=== PATIENT | female | born 1990 | race Caucasian/White ===

== ENCOUNTER 2023-01-14 11:34 | Emergency (ER) | payer OTHER ==
[2023-01-14 11:43] VITALS: BMI 27.9
[2023-01-14] MEDS ORDERED: ACETAMINOPHEN 1000 MG/100 ML BAG IVPB ONE (12:38)
[2023-01-14] MEDS ORDERED: SODIUM CHLORIDE 0.9% 500 ML INFUS.BAG IV ONE (12:38)
[2023-01-14] MEDS ORDERED: ACETAMINOPHEN INJECTION 100 ML IVPB ONE (13:29)
[2023-01-14 14:03] LABS: BASO % 0.3 % (0-2.0); EOS % 0.3 % (0-4.5); HEMATOCRIT 41.5 % (32.4-45.2); HEMOGLOBIN 13.6 GM/dL (10.7-15.3); LYMPH % 14.2 % (8-40); MCH 27.3 pg (25.7-33.7); MCHC 32.8 g/dl (32.0-36.0); MEAN CELL VOLUME 83.1 fl (80-96); MEAN PLT VOLUME 8.1 fl (7.5-11.1); MONO % 7.1 % (3.8-10.2); NEUT % 78.1 % (42.8-82.8); PLATELET COUNT 331 10^3/uL (134-434); RDW 12.8 % (11.6-15.6); WHITE BLOOD COUNT 16.6 K/mm3 (4.0-10.0)
[2023-01-14 14:16] LABS: CALCIUM 9.5 mg/dL (8.5-10.1)
[2023-01-14 14:17] LABS: ALBUMIN 3.9 g/dl (3.4-5.0)
[2023-01-14 14:19] LABS: CREATININE 0.6 mg/dL (0.55-1.3)
[2023-01-14 14:21] LABS: BILIRUBIN,TOTAL 0.5 mg/dL (0.2-1); TOT PROT 7.9 g/dl (6.4-8.2)
[2023-01-14 14:43] LABS: EPI CELLS 2 /uL (0-25.1); HYALINE CASTS 0 /uL (0-3.1); URINE APPEARANCE CLEAR; URINE BACTERIA 2 /uL (0-1359); URINE BILIRUBIN NEGATIVE (NEGATIVE); URINE COLOR YELLOW; URINE GLUCOSE (UA) NEGATIVE (NEGATIVE); URINE KETONE NEGATIVE (NEGATIVE); URINE LEUK ESTERASE NEGATIVE (NEGATIVE); URINE NITRITE NEGATIVE (NEGATIVE); URINE PROTEIN NEGATIVE (NEGATIVE); URINE RBC 40 /uL (0-23.9); URINE WBC 3 /uL (0-25.8)
[2023-01-14 16:02] VITALS: BP 109/76; PULSE 97; RESP 18; TEMP 97.5
[2023-01-14] MEDS ORDERED: AMOX TR/POT CLAV 875MG/125MG TABLETS (FP) PO ONE (16:05)
[2023-01-14] MEDS ORDERED: AMOX TR/POT CLAV 500MG/125MG TABLETS (FP) ONE (16:11)
[2023-01-14] MEDS ORDERED: AMOX TR/POT CLAV 875MG/125MG TABLETS (FP) ONE (16:11)
== END 2023-01-14 16:19 | disposition home or self-care (01) ==
LOC: JERFT 11:34
PROC: 3E0333Z Introduction of Anti-inflammatory into Peripheral Vein, Percutaneous Approach (ICD-10-PCS; principal; 2023-01-14)
DX: K57.32 Diverticulitis of large intestine without perforation or abscess without bleeding (principal)
CPT/HCPCS: 0241U-QW; 36415; 74177-TC; 80053; 81003; 84703; 85025; 86140; 87086; 99285-25; Q9967

== ENCOUNTER 2024-09-03 04:46 | Emergency (ER) | payer OTHER ==
[2024-09-03 05:24] VITALS: BP 114/76; PULSE 99; RESP 16; TEMP 98.8; BMI 28.3
[2024-09-03] MEDS ORDERED: ACETAMINOPHEN 325 MG TABLET (FP) ONE (05:44)
[2024-09-03] MEDS: ACETAMINOPHEN 500 MG TABLET (FP) PO ONE (05:48)
[2024-09-03 06:22] LABS: BASO % 0.3 % (0-2.0); EOS % 0.7 % (0-4.5); HEMATOCRIT 39.4 % (32.4-45.2); HEMOGLOBIN 13.1 GM/dL (10.7-15.3); LYMPH % 16.4 % (8-40); MCH 27.9 pg (25.7-33.7); MCHC 33.3 g/dl (32.0-36.0); MEAN CELL VOLUME 83.8 fl (80-96); MONO % 6.7 % (3.8-10.2); NEUT % 75.9 % (42.8-82.8); PLATELET COUNT 335 10^3/uL (134-434); RBC 4.69 M/mm3 (3.60-5.2); RDW 12.4 % (11.6-15.6); WHITE BLOOD COUNT 11.4 K/mm3 (4.0-10.0)
[2024-09-03 06:23] LABS: PH,URINE 7.5 (5.0-8.0); URINE APPEARANCE CLEAR; URINE BILIRUBIN NEGATIVE (NEGATIVE); URINE COLOR YELLOW; URINE GLUCOSE (UA) NEGATIVE (NEGATIVE); URINE KETONE NEGATIVE (NEGATIVE); URINE LEUK ESTERASE NEGATIVE (NEGATIVE); URINE NITRITE NEGATIVE (NEGATIVE); URINE PROTEIN NEGATIVE (NEGATIVE); URINE UROBILINOGEN 0.2 mg/dL (0.2-1.0)
[2024-09-03 06:52] LABS: POTASSIUM 3.8 mmol/L (3.5-5.1)
[2024-09-03 06:53] LABS: CALCIUM 9.1 mg/dL (8.5-10.1)
[2024-09-03 06:54] LABS: BLOOD UREA NITROGEN 12.1 mg/dL (7-18)
[2024-09-03 06:57] LABS: CREATININE 0.7 mg/dL (0.55-1.3)
[2024-09-03 06:59] LABS: BILIRUBIN,TOTAL 0.4 mg/dL (0.2-1); TOT PROT 7.8 g/dl (6.4-8.2)
[2024-09-03 12:53] LABS: HIV INTERPRETATION NEGATIVE (NEGATIVE)
== END 2024-09-03 07:32 | disposition home or self-care (01) ==
LOC: JER 04:46
DX: R10.30 Lower abdominal pain, unspecified (principal)
CPT/HCPCS: 36415; 80053; 81003; 83690; 84703; 85025; 86803; 87086; 87389; 99283-25